=== PATIENT | male | born 1985 | race Hispanic/Latino ===

== ENCOUNTER → 2024-08-10 10:35 | Outpatient (REF) | payer OTHER, SELFPAY ==
[2024-08-11 14:11] LABS: H. pylori Breath Test Negative (Negative)
== END ==
LOC: REG 10:35
PROVIDERS: ATTENDING PHYSICIAN Student in an Organized Health Care Education/Training Program
DX: K29.50 Unspecified chronic gastritis without bleeding (principal)
CPT/HCPCS: 36415; 83013

== ENCOUNTER → 2024-12-26 07:16 | Outpatient (REF) | payer OTHER, SELFPAY | LOC: HWRAD 07:16 | PROVIDERS: ATTENDING PHYSICIAN Family Medicine | DX: R10.11 Right upper quadrant pain (principal) | CPT/HCPCS: 76700 ==